=== PATIENT | female | born 1960 | race Caucasian/White ===

== ENCOUNTER 2016-06-27 10:07 | Emergency (ER) | payer OTHER ==
[~2016-06-27] VITALS: Ht 152.4 cm; Wt 54.7 kg
[~2016-06-27 10:07] MED LIST: ADVAIR HFA120 INHAL1 IH; ALPRAZOLAM0.25 M2 PO; ASPIR 8181 M1 PO; ASPIRIN81 M1 PO; BENAZEPRIL HCL10 MG PO; CLARITIN10 M3 PO; CLEOCIN300 MG PO; CLINDAMYCIN HC300 MG PO; COUMADIN1 MG PO; COUMADIN4 MG PO; COUMADIN5 MG PO; Claritin,Alavart PO; DILAUDID2 MG PO; Ecotrin PO; LEXAPRO20 MG PO; LEXAPRO5 MG PO; LOTENSIN10 MG PO; LOVENOX60 MG/0.6 SC; LOW DOSE ASPIRI81 M1 PO; Lexapro PO; NEURONTIN300 MG PO; NITROSTAT0.4 MG SL; NORVASC5 MG PO; Nitrostat,NitroQuick SL; PANTOPRAZOLE SO40 MG PO; PERCOCET 5/31 TABLET PO; POTASSIUM20 MEQ/11 PO; PRAVACHOL40 MG PO; PRAVASTATIN SOD80 MG PO; PROVENTIL,2.5 MG/3 M IH; Pravachol PO; ROXICODONE5 MG PO; SIMVASTATIN40 M1 PO; TOPROL XL50 MG PO; TYLENOL EXTRA500 MG PO; Toprol XL PO; WARFARIN SODIU7.5 MG PO; WARFARIN SODIUM10 MG PO; Wellbutrin SR PO; ZESTRIL,PRINIVI40 MG PO; ZESTRIL40 MG PO; Zestril,Prinivil PO; Zithromax PO; [UNRECOGNIZED DRUG - REMARK]
[2016-06-27] MEDS ORDERED: XARELTO20 MG PO (10:41)
[2016-06-27 10:50] LABS: HEMATOCRIT 50.2 % (36.0-46.0); MCHC 32.1 G/DL (30.0-36.0); MCV 93.5 FL (83-99); MEAN PLAT.VOLUME 9.8 uM^3 (9.5-12.4); PLATELET COUNT 261 K/uL (156-360); RBC DIS.WIDTH-CV 13.1 % (11.8-14.6); RBC DIS.WIDTH-SD 45.1 % (39-53); RED BLOOD COUNT 5.37 M/uL (3.80-5.20); WHITE BLOOD COUNT 6.7 K/uL (4.1-10.2)
[2016-06-27 11:07] LABS: CHLORIDE 103 mEq/L (99-109); POTASSIUM 3.7 mEq/L (3.7-5.4); SODIUM 140 mEq/L (136-147)
[2016-06-27 11:09] LABS: GLUCOSE 60 mg/dL (70-99)
[2016-06-27 11:10] LABS: ANION GAP 11 MEQ/L (2-14)
[2016-06-27 11:13] LABS: GFR ESTIMATE (CALCULATED) > 59 mL/min/
[2016-06-27 11:14] LABS: TROP-I INTERPRETATION NEGATIVE; TROPONIN-I < 0.01 ng/mL (0.0-0.30); UREA NITROGEN (BUN) 12 mg/dL (9-23)
[2016-06-27 13:14] LABS: POINT-OF-CARE METER ID UU14100415
[2016-06-27] MEDS ORDERED: PERCOCET 5/31 TABLET PO (13:27)
[2016-06-27 13:50] VITALS: BP 111/83
== END 2016-06-27 14:11 | disposition home or self-care (01) ==
LOC: EME 10:07
PROVIDERS: Emergency Medicine
DX: M75.102 Unspecified rotator cuff tear or rupture of left shoulder, not specified as traumatic (principal); I73.9 Peripheral vascular disease, unspecified; J45.909 Unspecified asthma, uncomplicated; I10 Essential (primary) hypertension; I25.2 Old myocardial infarction; J44.9 Chronic obstructive pulmonary disease, unspecified; Z79.01 Long term (current) use of anticoagulants; Z95.5 Presence of coronary angioplasty implant and graft; Z79.82 Long term (current) use of aspirin; I25.9 Chronic ischemic heart disease, unspecified; Z86.718 Personal history of other venous thrombosis and embolism; Z88.5 Allergy status to narcotic agent; F17.200 Nicotine dependence, unspecified, uncomplicated
CPT/HCPCS: 71020; 73030; 73630; 80048; 82948; 84484; 85027; 93005; 93926; 99281; 99285

== ENCOUNTER 2017-02-25 12:18 | Inpatient (IN) | payer OTHER ==
[~2017-02-25] VITALS: Ht 152.4 cm; Wt 66.8 kg
[~2017-02-25 12:18] MED LIST changes: +XARELTO20 MG PO
[2017-02-25 13:11] LABS: HEMATOCRIT 40.3 % (36.0-46.0); HEMOGLOBIN 13.7 G/DL (11.9-15.5); MCH 30.4 PG (29.0-34.0); RBC DIS.WIDTH-SD 42.7 % (39-53); RED BLOOD COUNT 4.51 M/uL (3.80-5.20); WHITE BLOOD COUNT 14.7 K/uL (4.1-10.2)
[2017-02-25 13:16] LABS: ALBUMIN 3.2 g/dL (3.2-4.8); CHLORIDE 96 mEq/L (99-109); POTASSIUM 3.9 mEq/L (3.7-5.4); SODIUM 131 mEq/L (136-147)
[2017-02-25 13:18] LABS: GLUCOSE 138 mg/dL (70-99)
[2017-02-25 13:19] LABS: TOTAL PROTEIN 7.2 g/dL (6.4-8.3)
[2017-02-25 13:20] LABS: TOTAL BILIRUBIN 0.8 mg/dL (0.0-1.0)
[2017-02-25 13:22] LABS: ALKALINE PHOSPHATASE 78 IU/L (3-129); CREATININE 1.2 mg/dL (0.6-1.3); GFR ESTIMATE (CALCULATED) 49 mL/min/
[2017-02-25 13:24] LABS: AST (GOT) 22 IU/L (2-34); DIRECT BILIRUBIN 0.4 mg/dL (0.0-0.3); UREA NITROGEN (BUN) 23 mg/dL (9-23)
[2017-02-25 13:25] LABS: ALT (GPT) 14 IU/L (3-49); LIPASE 36 U/L (1.0-51.0)
[2017-02-25 13:28] LABS: TROP-I INTERPRETATION NEGATIVE; TROPONIN-I 0.02 ng/mL (0.0-0.30)
[2017-02-25 13:50] LABS: MCV 89.4 FL (83-99)
[2017-02-25 13:59] LABS: ABS NEUTROPHIL COUNT 13.1; ATYPICAL LYMPHOCYTE 2.7 %; BAND NEUTROPHILS 7.1 % (0-8.0); EOSINOPHIL ABS CT 0; LYMPHOCYTES 2.6 % (15.0-45.0); MONOCYTES 5.3 % (0-9.0); PLAT.SUFFICIENCY ADEQUATE; PLATELET COUNT 169 K/uL (156-360); SEG.NEUTROPHILS 82.3 % (46.0-76.0)
[2017-02-25 14:17] LABS: APPEARANCE CLOUDY ((CLEAR)); BILIRUBIN NEGATIVE; BLOOD MODERATE; COLOR AMBER ((YELLOW)); GLUCOSE (STRIP) NEGATIVE; KETONES NEGATIVE; LEUKOCYTES NEGATIVE; NITRITE NEGATIVE; PROTEIN (STRIP) 100; SPECIFIC GRAVITY 1.023 (1.000-1.030)
[2017-02-25 14:34] LABS: BACTERIA RARE /HPF; EPITHELIAL CELLS RARE /HPF; HYALINE CASTS 30-40 /LPF; MUCUS 1+ /LPF; UCUL ADDED? YES
[2017-02-25 18:39] VITALS: BP 106/51
[2017-02-25 19:46] LABS: TROP-I INTERPRETATION NEGATIVE; TROPONIN-I 0.02 ng/mL (0.0-0.30)
[2017-02-26 00:32] VITALS: BP 102/68
[2017-02-26 01:42] LABS: HEMATOCRIT 33.2 % (36.0-46.0); HEMOGLOBIN 11.1 G/DL (11.9-15.5); MCH 30.7 PG (29.0-34.0); MCHC 33.4 G/DL (30.0-36.0); MCV 91.7 FL (83-99); PLATELET COUNT 133 K/uL (156-360); RBC DIS.WIDTH-CV 13.3 % (11.8-14.6); RBC DIS.WIDTH-SD 45.4 % (39-53); RED BLOOD COUNT 3.62 M/uL (3.80-5.20); WHITE BLOOD COUNT 12.3 K/uL (4.1-10.2)
[2017-02-26 01:53] LABS: CHLORIDE 104 mEq/L (99-109); POTASSIUM 3.4 mEq/L (3.7-5.4); SODIUM 135 mEq/L (136-147)
[2017-02-26 01:55] LABS: GLUCOSE 135 mg/dL (70-99)
[2017-02-26 01:59] LABS: CREATININE 0.9 mg/dL (0.6-1.3); GFR ESTIMATE (CALCULATED) > 59 mL/min/; UREA NITROGEN (BUN) 16 mg/dL (9-23)
[2017-02-26 02:03] LABS: TROP-I INTERPRETATION NEGATIVE; TROPONIN-I 0.02 ng/mL (0.0-0.30)
[2017-02-26 07:07] VITALS: BP 104/58
[2017-02-26 11:36] VITALS: BP 109/61
[2017-02-26 15:05] VITALS: BP 90/52
[2017-02-26 20:00] VITALS: BP 92/51
[2017-02-27] VITALS (7 sets, daily range): BP systolic 95–108; BP diastolic 52–68
[2017-02-27 06:43] LABS: HEMATOCRIT 31.1 % (36.0-46.0); HEMOGLOBIN 10.1 G/DL (11.9-15.5); MCH 30.1 PG (29.0-34.0); MCHC 32.5 G/DL (30.0-36.0); MCV 92.8 FL (83-99); PLATELET COUNT 141 K/uL (156-360); RBC DIS.WIDTH-CV 13.9 % (11.8-14.6); RBC DIS.WIDTH-SD 47.9 % (39-53); RED BLOOD COUNT 3.35 M/uL (3.80-5.20); WHITE BLOOD COUNT 17.3 K/uL (4.1-10.2)
[2017-02-27 07:11] LABS: CHLORIDE 107 MEQ/L (99-109); CREATININE 1.1 MG/DL (0.6-1.3); GFR ESTIMATE (CALCULATED) 55 mL/min/; POTASSIUM 3.2 MEQ/L (3.7-5.4); SODIUM 140 MEQ/L (136-147); UREA NITROGEN (BUN) 19 mg/dL (9-23)
[2017-02-27 07:15] LABS: GLUCOSE 84 mg/dL (70-99)
[2017-02-27 15:08] LABS: CHLORIDE 108 MEQ/L (99-109); CREATININE 0.9 MG/DL (0.6-1.3); GFR ESTIMATE (CALCULATED) > 59 mL/min/; GLUCOSE 92 mg/dL (70-99); POTASSIUM 3.7 MEQ/L (3.7-5.4); SODIUM 139 MEQ/L (136-147); UREA NITROGEN (BUN) 17 mg/dL (9-23)
[2017-02-28 06:02] LABS: HEMATOCRIT 33.4 % (36.0-46.0); HEMOGLOBIN 10.9 G/DL (11.9-15.5); MCH 29.8 PG (29.0-34.0); MCHC 32.6 G/DL (30.0-36.0); MCV 91.3 FL (83-99); NRBC (%) 0.1 /100 WBC (0-0); PLATELET COUNT 172 K/uL (156-360); RBC DIS.WIDTH-CV 14.3 % (11.8-14.6); RBC DIS.WIDTH-SD 48.6 % (39-53); RED BLOOD COUNT 3.66 M/uL (3.80-5.20); WHITE BLOOD COUNT 21.8 K/uL (4.1-10.2)
[2017-02-28 06:56] LABS: CHLORIDE 107 MEQ/L (99-109); CREATININE 0.9 MG/DL (0.6-1.3); GFR ESTIMATE (CALCULATED) > 59 mL/min/; POTASSIUM 4.3 MEQ/L (3.7-5.4); SODIUM 136 MEQ/L (136-147); UREA NITROGEN (BUN) 21 mg/dL (9-23)
[2017-02-28 06:58] LABS: GLUCOSE 119 mg/dL (70-99)
[2017-02-28 07:16] VITALS: BP 132/62
[2017-02-28 11:16] VITALS: BP 120/60
[2017-02-28 15:16] VITALS: BP 111/53
[2017-02-28 19:30] VITALS: BP 139/75
[2017-03-01] VITALS: BP 146/82
[2017-03-01 04:00] VITALS: BP 126/82
[2017-03-01 06:19] LABS: HEMATOCRIT 32.6 % (36.0-46.0); HEMOGLOBIN 10.9 G/DL (11.9-15.5); MCH 30.1 PG (29.0-34.0); MCHC 33.4 G/DL (30.0-36.0); MCV 90.1 FL (83-99); NRBC (%) 0.1 /100 WBC (0-0); RBC DIS.WIDTH-CV 14.5 % (11.8-14.6); RBC DIS.WIDTH-SD 48.2 % (39-53); RED BLOOD COUNT 3.62 M/uL (3.80-5.20)
[2017-03-01 06:20] LABS: PLATELET COUNT 226 K/uL (156-360); WHITE BLOOD COUNT 33.3 K/uL (4.1-10.2)
[2017-03-01 06:28] LABS: CHLORIDE 112 MEQ/L (99-109); CREATININE 0.7 MG/DL (0.6-1.3); GFR ESTIMATE (CALCULATED) > 59 mL/min/; GLUCOSE 131 mg/dL (70-99); SODIUM 142 MEQ/L (136-147); UREA NITROGEN (BUN) 20 mg/dL (9-23)
[2017-03-01 06:35] VITALS: BP 121/73
[2017-03-01 11:04] VITALS: BP 126/60
[2017-03-01 12:15] LABS: ERTH.SED.RATE 37 MM/HR (0-30)
[2017-03-01 12:33] LABS: C-REACTIVE PROTEIN 144.7 MG/L (0-10)
[2017-03-01 15:08] VITALS: BP 116/56
[2017-03-01 16:41] LABS: HEMATOCRIT 32.6 % (36.0-46.0); HEMOGLOBIN 10.9 G/DL (11.9-15.5); MCH 30.2 PG (29.0-34.0); MCHC 33.4 G/DL (30.0-36.0); MCV 90.3 FL (83-99); NRBC (%) 0.1 /100 WBC (0-0); PLATELET COUNT 223 K/uL (156-360); RBC DIS.WIDTH-CV 14.7 % (11.8-14.6); RBC DIS.WIDTH-SD 49.1 % (39-53); RED BLOOD COUNT 3.61 M/uL (3.80-5.20)
[2017-03-01 16:42] LABS: WHITE BLOOD COUNT 34.7 K/uL (4.1-10.2)
[2017-03-01 17:47] LABS: ABS NEUTROPHIL COUNT 33.1; ANISOCYTOSIS 1+; BAND NEUTROPHILS 4.3 % (0-8.0); BURR CELLS 1+; EOSINOPHIL ABS CT 0; LYMPHOCYTES 1.9 % (15.0-45.0); MONOCYTES 2.8 % (0-9.0); PLAT.SUFFICIENCY ADEQUATE; TOXIC GRANULATION 1+
[2017-03-01 23:04] VITALS: BP 116/62
[2017-03-02] VITALS (9 sets, daily range): BP systolic 85–128; BP diastolic 52–78
[2017-03-02 06:14] LABS: HEMATOCRIT 29.9 % (36.0-46.0); HEMOGLOBIN 10.2 G/DL (11.9-15.5); MCH 30.4 PG (29.0-34.0); MCHC 34.1 G/DL (30.0-36.0); NRBC (%) 0.1 /100 WBC (0-0); PLATELET COUNT 176 K/uL (156-360); RBC DIS.WIDTH-CV 14.8 % (11.8-14.6); RBC DIS.WIDTH-SD 48.4 % (39-53); RED BLOOD COUNT 3.36 M/uL (3.80-5.20); WHITE BLOOD COUNT 40.3 K/uL (4.1-10.2)
[2017-03-02 08:07] LABS: ABS NEUTROPHIL COUNT 31.9; ANISOCYTOSIS 1+; ATYPICAL LYMPHOCYTE 2.1 %; EOSINOPHIL ABS CT 0; LYMPHOCYTES 3.4 % (15.0-45.0); MACROCYTES 1+; METAMYELOCYTES 0.4 %; MONOCYTES 0.4 % (0-9.0); OTHER 14.5; PLAT.SUFFICIENCY ADEQUATE; POIKILOCYTOSIS 1+; SEG.NEUTROPHILS 73.2 % (46.0-76.0); TARGET CELLS 1+
[2017-03-02 15:44] LABS: BASE EXCESS -8.6 mEq/L (-3 to +3); BICARBONATE 16.2 mEq/L (22-26); CARBOXY HGB 2.8 % (0-5); COMMENTS - BLOOD GASES A+C+; DEVICE NC; METHEMOGLOBIN 2.8 % (0-1.5); O2 FLOW 2 L/MIN; PCO2 30 mm Hg (35-45); PO2 65 mm Hg (80-100); SITE LR; TOTAL RESP RATE 28 resp/min; pH 7.34 (7.35-7.45)
[2017-03-02 15:59] LABS: CHLORIDE 106 MEQ/L (99-109); POTASSIUM 3.8 MEQ/L (3.7-5.4); SODIUM 139 MEQ/L (136-147)
[2017-03-02 16:06] LABS: CREATININE 0.8 MG/DL (0.6-1.3); GFR ESTIMATE (CALCULATED) > 59 mL/min/; UREA NITROGEN (BUN) 15 mg/dL (9-23)
[2017-03-02 16:07] LABS: GLUCOSE 65 mg/dL (70-99)
[2017-03-02 17:06] LABS: URIC ACID 4.3 mg/dL (3.1-9.2)
[2017-03-03] VITALS (18 sets, daily range): BP systolic 92–135; BP diastolic 45–89
[2017-03-03 01:56] LABS: BASE EXCESS -13.1 mEq/L (-3 to +3); PCO2 27 mm Hg (35-45); PO2 53 mm Hg (80-100)
[2017-03-03 01:57] LABS: BICARBONATE 12.4 mEq/L (22-26); DEVICE NC; O2 FLOW 2 L/MIN; SITE LR; TOTAL RESP RATE 48 resp/min; pH 7.27 (7.35-7.45)
[2017-03-03 06:35] LABS: PLATELET COUNT 132 K/uL (156-360)
[2017-03-03 06:36] LABS: HEMATOCRIT 28.2 % (36.0-46.0); HEMOGLOBIN 9.9 G/DL (11.9-15.5); MCH 30.8 PG (29.0-34.0); MCHC 35.1 G/DL (30.0-36.0); MCV 87.9 FL (83-99); NRBC (%) 0.2 /100 WBC (0-0); RBC DIS.WIDTH-CV 15.6 % (11.8-14.6); RBC DIS.WIDTH-SD 50.3 % (39-53); RED BLOOD COUNT 3.21 M/uL (3.80-5.20)
[2017-03-03 06:37] LABS: WHITE BLOOD COUNT 70.8 K/uL (4.1-10.2)
[2017-03-03 07:04] LABS: CHLORIDE 107 MEQ/L (99-109); CREATININE 0.9 MG/DL (0.6-1.3); GFR ESTIMATE (CALCULATED) > 59 mL/min/; SODIUM 141 MEQ/L (136-147); UREA NITROGEN (BUN) 17 mg/dL (9-23)
[2017-03-03 07:05] LABS: GLUCOSE 38 mg/dL (70-99)
[2017-03-04] VITALS (18 sets, daily range): BP systolic 77–162; BP diastolic 46–110
[2017-03-04 03:45] LABS: LD-1/LD-2 RATIO 0.44 (())
[2017-03-04 06:45] LABS: HEMOGLOBIN 9.7 G/DL (11.9-15.5); MAGNESIUM 1.5 mg/dl (1.3-2.7); MCH 31.1 PG (29.0-34.0); MCHC 35.9 G/DL (30.0-36.0); MCV 86.5 FL (83-99); NRBC (%) 0.2 /100 WBC (0-0); PLATELET COUNT 96 K/uL (156-360); RBC DIS.WIDTH-CV 16.1 % (11.8-14.6); RBC DIS.WIDTH-SD 50.3 % (39-53); RED BLOOD COUNT 3.12 M/uL (3.80-5.20)
[2017-03-04 06:49] LABS: WHITE BLOOD COUNT 110.5 K/uL (4.1-10.2)
[2017-03-04 07:56] LABS: ABS NEUTROPHIL COUNT 58.8; ANISOCYTOSIS 1+; ATYPICAL LYMPHOCYTE 2.5 %; BAND NEUTROPHILS 1.2 % (0-8.0); EOSINOPHIL ABS CT 0; LYMPHOCYTES 9.4 % (15.0-45.0); MONOCYTES 2.1 % (0-9.0); NUCLEATED RBC'S 0.4; OTHER 32.8; PLAT.SUFFICIENCY DECREASED; SMUDGE CELLS 1.2
[2017-03-04 09:03] LABS: CHLORIDE 107 MEQ/L (99-109); GFR ESTIMATE (CALCULATED) > 59 mL/min/; SODIUM 142 MEQ/L (136-147); UREA NITROGEN (BUN) 20 mg/dL (9-23)
[2017-03-04 09:04] LABS: GLUCOSE 28 mg/dL (70-99); POTASSIUM 3.8 MEQ/L (3.7-5.4)
[2017-03-04 15:43] LABS: Flow Clinical Information NOT PROVIDED (()); Flow Number of Markers 26 (()); Flow Spec Viability 96 % (()); Flow Specimen Type PERIPHERAL BLOOD (())
[2017-03-04 17:24] LABS: CARBOXY HGB 6.1 % (0-5); METHEMOGLOBIN 4.2 % (0-1.5)
[2017-03-04 17:27] LABS: PCO2 61 mm Hg (35-45); PO2 73 mm Hg (80-100)
[2017-03-04 17:28] LABS: COMMENTS - BLOOD GASES C+; DEVICE VENT; FI02 40 %; INSPIRATION TIME 0.9 seconds; MECHANICAL RATE 12 resp/min; MODE AC VC+; PEEP 5 CM/H20; SITE RR; TIDAL VOLUME 550 ML; TOTAL RESP RATE 12 resp/min; pH < 6.92 (7.35-7.45)
[2017-03-04 20:17] LABS: BASE EXCESS -21.5 mEq/L (-3 to +3); CARBOXY HGB 5.9 % (0-5); METHEMOGLOBIN 3.5 % (0-1.5); PO2 79 mm Hg (80-100)
[2017-03-04 20:18] LABS: BICARBONATE 7.9 mEq/L (22-26); COMMENTS - BLOOD GASES C+A+; PCO2 30 mm Hg (35-45); SITE RR
[2017-03-04 20:19] LABS: DEVICE VENTILATOR; FI02 40 %; MECHANICAL RATE 15 resp/min; MODE AC VC+; PEEP 5 CM/H20; TIDAL VOLUME 550 ML; TOTAL RESP RATE 29 resp/min; pH 7.03 (7.35-7.45)
[2017-03-05] VITALS (20 sets, daily range): BP systolic 75–137; BP diastolic 46–121
[2017-03-05 00:48] LABS: INTER. NORMALIZED RATIO 2.6
[2017-03-05 00:51] LABS: PTT 48.5 SEC (25-37)
[2017-03-05 01:03] LABS: CHLORIDE 105 MEQ/L (99-109); CREATININE 1.4 MG/DL (0.6-1.3); GFR ESTIMATE (CALCULATED) 41 mL/min/; GLUCOSE 66 mg/dL (70-99); MAGNESIUM 2.3 mg/dl (1.3-2.7); PHOSPHORUS 3.9 mg/dL (2.5-4.9); POTASSIUM 4.4 MEQ/L (3.7-5.4); SODIUM 141 MEQ/L (136-147); UREA NITROGEN (BUN) 28 mg/dL (9-23)
[2017-03-05 01:48] LABS: CARBON DIOXIDE (BICARBONATE) < 10.0 MEQ/L (20-31)
[2017-03-05 05:20] LABS: CHLORIDE 104 mEq/L (99-109); POTASSIUM 4.1 mEq/L (3.7-5.4); SODIUM 140 mEq/L (136-147)
[2017-03-05 05:26] LABS: CREATININE 1.5 mg/dL (0.6-1.3); GFR ESTIMATE (CALCULATED) 38 mL/min/
[2017-03-05 05:27] LABS: UREA NITROGEN (BUN) 31 mg/dL (9-23)
[2017-03-05 05:29] LABS: HEMATOCRIT 25.7 % (36.0-46.0); HEMOGLOBIN 9.6 G/DL (11.9-15.5); MCH 33.7 PG (29.0-34.0); MCHC 37.4 G/DL (30.0-36.0); MCV 90.2 FL (83-99); NRBC (%) 0.7 /100 WBC (0-0); PLATELET COUNT 119 K/uL (156-360); RBC DIS.WIDTH-CV 18.4 % (11.8-14.6); RBC DIS.WIDTH-SD 59.9 % (39-53); RED BLOOD COUNT 2.85 M/uL (3.80-5.20)
[2017-03-05 05:32] LABS: GLUCOSE 86 mg/dL (70-99)
[2017-03-05 06:17] LABS: WHITE BLOOD COUNT 164.6 K/uL (4.1-10.2)
[2017-03-05 06:28] LABS: HEMATOCRIT 26.7 % (36.0-46.0); HEMOGLOBIN 9.5 G/DL (11.9-15.5); MCH 33.1 PG (29.0-34.0); MCHC 35.6 G/DL (30.0-36.0); NRBC (%) 0.7 /100 WBC (0-0); PLAT.SUFFICIENCY DECREASED; RBC DIS.WIDTH-CV 18.1 % (11.8-14.6); RBC DIS.WIDTH-SD 61.5 % (39-53); RED BLOOD COUNT 2.87 M/uL (3.80-5.20)
[2017-03-05 06:29] LABS: PLATELET COUNT 127 K/uL (156-360); WHITE BLOOD COUNT 156.8 K/uL (4.1-10.2)
[2017-03-05 08:23] LABS: ABS NEUTROPHIL COUNT 65.3; ANISOCYTOSIS 1+; BAND NEUTROPHILS 12.9 % (0-8.0); EOSINOPHIL ABS CT 0; HYPOCHROMASIA 1+; MONOCYTES 1.7 % (0-9.0); NUCLEATED RBC'S 0.3; OTHER 58.6; PLAT.SUFFICIENCY DECREASED; POIKILOCYTOSIS 1+; SCHISTOCYTES 1+; SEG.NEUTROPHILS 26.8 % (46.0-76.0); TOX.VACUOLIZATION 1+
[2017-03-05 12:44] LABS: TRIGLYCERIDES 132 MG/DL (Normal: <150)
[2017-03-05 18:08] LABS: URIC ACID 7.5 mg/dL (3.1-9.2)
[2017-03-06] VITALS: BP 72/60
== END 2017-03-06 01:22 | DRG 853 ==
LOC: EME 12:18 → 4WEST 16:32 → EDOF 16:32 → 5EAST 16:32 → ENRESERV 16:33 → 5EAST 18:18 → ENRESERV 03-02 16:33 → 4EAST 03-02 17:58 → ENRESERV 03-03 02:06 → 4EAST 03-03 02:24 → ENRESERV 03-03 02:27 → 4WEST 03-03 02:57
PROVIDERS: Hospitalist; Internal Medicine; Internal Medicine Critical Care Medicine; Internal Medicine Hematology & Oncology; Internal Medicine Infectious Disease; Physician Assistant
DX: A41.9 Sepsis, unspecified organism (principal); J18.9 Pneumonia, unspecified organism; J96.01 Acute respiratory failure with hypoxia; C84.6 Anaplastic large cell lymphoma, ALK-positive; N39.0 Urinary tract infection, site not specified; N19 Unspecified kidney failure; J44.9 Chronic obstructive pulmonary disease, unspecified; E78.5 Hyperlipidemia, unspecified; E87.6 Hypokalemia; R65.20 Severe sepsis without septic shock; C85.90 Non-Hodgkin lymphoma, unspecified, unspecified site; E87.1 Hypo-osmolality and hyponatremia; E86.0 Dehydration; J84.10 Pulmonary fibrosis, unspecified; R59.0 Localized enlarged lymph nodes; I11.0 Hypertensive heart disease with heart failure; D73.5 Infarction of spleen; E87.2 Acidosis; F43.10 Post-traumatic stress disorder, unspecified; I25.10 Atherosclerotic heart disease of native coronary artery without angina pectoris; I46.9 Cardiac arrest, cause unspecified; Z66 Do not resuscitate; K56.7 Ileus, unspecified; I50.9 Heart failure, unspecified; I47.1 Supraventricular tachycardia; R64 Cachexia; F17.210 Nicotine dependence, cigarettes, uncomplicated; Z95.5 Presence of coronary angioplasty implant and graft; F43.23 Adjustment disorder with mixed anxiety and depressed mood; Z68.34 Body mass index [BMI] 34.0-34.9, adult; Z90.49 Acquired absence of other specified parts of digestive tract; I25.2 Old myocardial infarction; Z80.1 Family history of malignant neoplasm of trachea, bronchus and lung; Z82.49 Family history of ischemic heart disease and other diseases of the circulatory system; Z80.7 Family history of other malignant neoplasms of lymphoid, hematopoietic and related tissues
CPT/HCPCS: 36600; 36620; 71010; 71020; 71250; 71275; 74176; 74177; 80048; 80048 91; 80053; 80076; 80202; 81003; 82232; 82728; 82803; 82948; 83605; 83615; 83615 90; 83625 90; 83690; 83735; 83880; 84100; 84478; 84484; 84550; 85007; 85025; 85027; 85384; 85610; 85651; 85730; 86140; 86611 90; 87040; 87070; 87077; 87086; 87106; 87147; 87186; 87205; 87449; 87493; 87502; 87506; 87641; 87801; 88305; 88341 TC; 88342 TC; 93005; 94002; 94003; 94640; 94640 76; 94799; 99202; 99281; 99284; C1751; C1753; J0456; J0500; J0696; J1100; J1170; J1644; J1720; J1940; J2248; J2250; J2370; J2405; J2543; J2704; J3010; J3370; J3475; J3480; J7030; J7040; J7042; J7050; J7120; J7512; S0020; S0028